=== PATIENT | female | born 1985 | race Caucasian/White ===

== ENCOUNTER → 2018-10-29 13:34 | Outpatient (CLI) | payer OTHER, SELFPAY ==
--- NOTE | 2018-10-29 13:37 | XR_ITS ---
XR AC joint BI CLINICAL INDICATION: Pain following injury, possible acromioclavicular separation ITS.REASON: RIGHT ac separation ORDERING PHYSICIAN: Aiyana Nuñez MD PATIENT AGE: 33 years Comparison: 09/14/2018 FINDINGS: Previously there was some mild prominence of the AC joint. That is less apparent on today's exam. AP views are obtained of both acromioclavicular joints without and with weights. The right AC joint is very slightly more prominent than the left AC joint however, that does not increase with weights. No fracture or dislocation is evident. IMPRESSION: Minimal prominence of the right acromioclavicular joint which does not significant change with weights and could be due to an old injury or variation of normal. Otherwise negative.
== END ==
PROVIDERS: PCP Nurse Practitioner; Visit Provider Orthopaedic Surgery
DX: S43.101A Unspecified dislocation of right acromioclavicular joint, initial encounter (principal)
CPT/HCPCS: 73050

== ENCOUNTER 2018-11-28 11:00 | Outpatient (RCR) | payer OTHER, SELFPAY ==
--- NOTE | 2018-10-02 13:24 | HMH.OTOPEV ---
OT Inpatient Evaluation Rehab OT Outpatient Eval Start: 10/02/18 13:12 Freq: Status: Active Protocol: Document 10/02/18 13:13 RMARSHALL (Rec: 10/02/18 13:24 [facility] [id number]) Electronically Signed By Anthony Garcia OT 10/02/18 13:13 Outpatient Therapy Subjective History Subjective History Pt is a 33 year old female who reports to therapy for initial evaluation to right shoulder. Pt injured her shoulder while she was in the shower on 09/14/18. Pt reports she slipped and started falling when she grabbed onto shower head and twisted her arm in the wrong direction. She immediately began having pain and numbness throughout the arm. Pt does demonstrate with decreased AROM and strength in right upper extremity. 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 Pt will continue to be seen twice a week in order to address pt's deficits. Xrays were reviewed and it appears to patient has an A/C joint separation (mild according to xray report). Chief Complaint Pain Weakness Symptom Type Ache Throb Sharp Dull Stabbing Burning Numbness Symptoms Relieved By Nothing Symptoms Aggravated By Physical Activity Lifting Prior Functional Limitations None Current Functional Limitations Reaching Lifting Housework Dressing Desk Work/Reading Sleeping Recreation Activity Symptom Description Intermittent Activity Dependent Level of pain today (0-10) 2 Pain scale - at its best (0-10) 1 Pain scale - at its worst (0-10) 8 Shoulder/Elbow Eval Shoulder Objective Measurements Shoulder ROM Right Shoulder ROM Limitations Pain Shoulder Abduction Ac
--- NOTE | 2018-10-31 15:21 | HMH.RHREAS ---
Rehab Reassessment Rehab OP Re-assessment Start: 10/31/18 14:32 Freq: Status: Active Protocol: Document 10/31/18 15:00 GABRIELA (Rec: 10/31/18 15:21 RMLAURE [id number]) Electronically Signed By Anthony Garcia OT 10/31/18 15:00 Rehab Re-assessment Subjective Subjective I went back to the doctor today. Objective Objective Notes Pt continues to be seen twice a week in order to engage in right shoulder AROM/AAROM/ Strengthening exercises due to A/C joint sprain/separation. Pt also engages in modalities such as e-stim and ionto to decrease pain/inflammation at joint. Assessment Progress Assessment Slower Than Expected Assessment Notes Pt's AROM and strength has improved since initial evaluation. However pt's pain continues to be a problem. Pt is consistent about attending therapy and is invloved in her rehab while at home. Pain at rest: 08/22 In use: 02/19 Right Shoulder Current AROM Flex: 130 degrees Abd: 150 degrees ER: 70 degrees IR: 52 degrees Right shoulder MMT Current Flex: 4+ Abd:4+ ER: 4 IR:4 Patient goals met n/a Goals Not Met Pain goal, MMT, AROM goals Revised Goals AROM Goals Flex: 160 degrees Abd: 175 degrees ER: 85 degrees IR: 80 degrees MMT Goals Flex: 5- Abd: 5- ER: 5- IR: 5- Plan Plan Continue with OT plan of care at this time. Frequency of Therapy 2 x's a week Duration of therapy 4-6 more weeks Time and Billing Re-Eval Time 15 Re-Eval Billing Units 1
== END 2018-11-28 11:05 | disposition home or self-care (01) ==
LOC: OT 11:00
PROVIDERS: Visit Provider Orthopaedic Surgery
DX: S43.101A Unspecified dislocation of right acromioclavicular joint, initial encounter (principal)
CPT/HCPCS: 97014; 97033; 97110; 97164; 97165; G0283

== ENCOUNTER → 2018-12-17 09:17 | Outpatient (CLI) | payer OTHER, SELFPAY ==
--- NOTE | 2018-12-17 09:19 | MR_ITS ---
MR shoulder RT wo con COMPARISON: 09/14/2018 HISTORY: Previous right shoulder dislocation with persistent pain and limited range of motion ORDERING PHYSICIAN: Aiyana Nuñez MD PATIENT AGE: 33 years TECHNIQUE: Routine multiplanar multiecho sequences are performed without contrast. FINDINGS: There is mild thickening of the supraspinatus tendon with slight increase in T2 signal consistent with mild tendinopathy/tendinosis with mild narrowing of the subacromial space at 5 mm. No evidence of tendon tear. The infraspinatus, subscapularis, and teres minor tendons appear intact. No evidence of labral tear. Small amount fluid is present in the subcoracoid region. The bicipital tendon is in place. No fracture. IMPRESSION: 1. Mild tendinopathy/tendinosis of the supraspinatus tendon with mild subacromial stenosis. No evidence of rotator cuff tear. 2. Small amount fluid in the subcoracoid region suggesting subcoracoid bursitis
== END ==
PROVIDERS: Visit Provider Orthopaedic Surgery
DX: S43.101A Unspecified dislocation of right acromioclavicular joint, initial encounter (principal)
CPT/HCPCS: 73221

== ENCOUNTER 2019-02-17 13:30 | Outpatient (RCR) | payer OTHER, SELFPAY ==
--- NOTE | 2019-01-27 15:38 | HMH.OTOPEV ---
OT Inpatient Evaluation Rehab OT Outpatient Eval Start: 01/27/19 15:23 Freq: Status: Active Protocol: Document 01/27/19 15:24 RMARSHALL (Rec: 01/27/19 15:[id number] Electronically Signed By Anthony Garcia OT 01/27/19 15:24 Outpatient Therapy Subjective History Subjective History Pt is a 33 year old female who reports to therapy for evaluation to right shoulder. Pt has been seen earlier in the year for right shoulder injury. Pt fell in her shower and dislocated her right shoulder in September,. Since this accident pt has had pain and decreased strength/ motion at the shoulder. Pt stopped therapy previously to have an MRI completed. MRI showed RTC tendinopathy and subacromial stenosis. Pt has had two injections at the shoulder but reports her pain continues to persist. Pt demonstrates with decreased AROM and strength upon evaluation. Pt will continue to be seen twice a week in order to address all deficits at the shoulder. Chief Complaint Pain,Weakness Symptom Type Ache,Throb,Sharp,Dull,Shooting Symptoms Relieved By Ice Symptoms Aggravated By Physical Activity,Twisting, Lifting Prior Functional Limitations None Current Functional Limitations Reaching,Lifting,Housework, Sleeping,Recreation Activity Symptom Description Intermittent,Pain at Rest Level of pain today (0-10) 3 Pain scale - at its best (0-10) 0 Pain scale - at its worst (0-10) 10 Shoulder/Elbow Eval Shoulder Objective Measurements Shoulder ROM Right Shoulder ROM Limitations Pain Shoulder Abduction Active Range of 152 degrees Motion (degrees) Shoulder Flexion Active Range of Motion 132 degrees (degrees) Query Text: Shoulder External Rotation Active Range 80 degrees of Motion (degrees) Shoulder Internal Rotation Active Range 45 degrees of Motion (degrees) pain with active ROM shoulder exam right standard pain with passive ROM shoulder exam right standard
== END 2019-02-17 17:35 | disposition home or self-care (01) ==
LOC: OT 13:30
PROVIDERS: Visit Provider Orthopaedic Surgery
DX: M75.41 Impingement syndrome of right shoulder (principal); M67.911 Unspecified disorder of synovium and tendon, right shoulder
CPT/HCPCS: 97165

== ENCOUNTER 2020-05-11 19:57 | Emergency (ER) | payer OTHER, SELFPAY ==
[2020-05-11 19:58] VITALS: BP 140/92; PULSE 87; RESP 16; TEMP 36.9; O2SAT 100; BMI 29.8
[2020-05-11 20:07] VITALS: BMI 25.0
[2020-05-11 20:12] LABS: Microscopic, Urine URINE MICROSCOPIC (MICROSCOPIC)
[2020-05-11 20:16] LABS: Appearance,Urine CLEAR (Clear); Bilirubin,Urine Negative (Negative); Blood, Urine Negative (Negative); Color,Urine YELLOW (Yellow); Glucose,Urine (UA) Negative (Negative); Ketones,Urine Negative (Negative); Leukocyte Esterase,Urine Negative (Negative); Nitrate,Urine Negative (Negative); Protein,Urine Negative (Negative); Urobilinogen,Urine 0.2 EU/dl (0.2)
[2020-05-11 20:22] LABS: Urine Pregnancy, HCG Qual. Negative (Negative)
[2020-05-11 20:31] LABS: Amorphous Sediment,Urine 1+ /lpf; Bacteria,Urine 1+ /lpf; WBC,Urine Occasional #/hpf (0-3)
[2020-05-11 20:49] VITALS: BP 140/90; PULSE 70; RESP 16; O2SAT 100
--- NOTE | 2020-05-11 21:00 | HMH.EDHA ---
ED Disposition Clinical Impression: Migraine Qualifiers: Migraine type: unspecified Status migrainosus presence: without status migrainosus Intractability: not intractable Qualified Code(s): G43.909 - Migraine, unspecified, not intractable, without status migrainosus Disposition: Home, Self-Care Condition on Discharge: Good Instructions: DI for Migraine Additional Instructions: call pcp in am Referrals: PCP,No [Primary Care Provider] - - Critical Care Critical Care Time: No Attestation: On 05/11/20, the high probability of a clinically significant, sudden or life threatening deterioration of the following system(s) required my full and direct attention, intervention and personal management. The time I documented below is in addition to time spent performing reported procedures but includes the following listed in this critical care notation. Medical Decision Making - Medical Records Medical records reviewed: Yes: I reviewed the patient's medical records. - Patrick Inquiry Pt receiving controlled substance: No Vital Signs: 05/11/20 19:58 05/11/20 20:49 Temperature 98.4 F Temperature Source Oral Pulse Rate [Right] 87 70 Respiratory Rate 16 16 Blood Pressure [Right Arm] 140/92 H 140/90 Blood Pressure Mean [Right Arm] 108 106 Blood Pressure Source [Right Arm] Automatic Cuff Automatic Cuff Blood Pressure Position [Right Arm] Sitting Sitting 02 Sat by Pulse Oximetry 100 100 Oxygen Delivery Method Room Air Room Air - Lab Data Lab Results 05/11/20 20:05: Urine Color Yellow, Urine Appearance Clear, Urine pH 8.0, Ur Specific [place] 1.020, Urine Protein Negative, Urine Glucose (UA) Negative, Urine Ketones Negative, Urine Blood Negative, Urine Nitrate Negative, Urine Bilirubin Negative, Urine Urobilinogen 0.2, Ur Leukocyte Esterase Negative, Urine WBC Occasional, Ur Squamous Epith Cells 5-10, Amorphous Sediment 1+, Urine Bacteria 1+ 05/11/20 20:05: Urine HCG, Qual Negative Orders (Tests/Meds): ED MEDICATIONS Generic Name Dose Route Start Last Admin Trade Name Freq PRN Reason Stop Dose Admin Sodium Chloride 1,000 mls @ 999 mls/hr 05/11/20 20:15 05/11/20 20:17 Sod Chlor 0.9% 1000ml Bag IV 05/11/20 21:15 999 mls/hr .Q1H1M BONNIE Administration Discontinued Medications Generic Name Dose Route Start Last Admin Trade Name Freq PRN Reason Stop Dose Admin Butorphanol Tartrate 1 mg 05/11/20 20:54 Stadol 1mg/1ml Vial IV 05/11/20 20:55 ONCE ONE Diphenhydramine HCl 50 mg 05/11/20 20:11 05/11/20 20:16 Benadryl 50mg/1ml Vial IV 05/11/20 20:12 50 mg ONCE ONE Administration Ketorolac Tromethamine 30 mg 05/11/20 20:11 05/11/20 20:16 Toradol 30mg/Ml Vial IV 05/11/20 20:12 30 mg ONCE ONE Administration Methylprednisolone Sodium Succinate 125 mg 05/11/20 20:11 05/11/20 20:16 Solu-Medrol 125mg/2ml Vial IV 05/11/20 20:12 125 mg ONCE ONE Administration Prochlorperazine Edisylate 10 mg 05/11/20 20:57 05/11/20 20:59 Compazine 10mg/2ml Vial IV 05/11/20 20:58 10 mg ONCE ONE Administration Promethazine HCl 12.5 mg 05/11/20 20:11 05/11/20 20:17 Phenergan 25mg/Ml 1ml Vial IV 05/11/20 20:12 12.5 mg ONCE ONE Administration Promethazine HCl 12.5 mg 05/11/20 20:54 05/11/20 20:58 Phenergan 25mg/Ml 1ml Vial IV 05/11/20 20:55 12.5 mg ONCE ONE Administration Sodium Chloride 25 ml 05/11/20 20:11 05/11/20 20:17 Sod Chlor 0.9% 25ml Bag IV 05/11/20 20:12 25 ml ONCE ONE Administration Sodium Chloride 25 ml 05/11/20 20:54 Sod Chlor 0.9% 25ml Bag IV 05/11/20 20:55 ONCE ONE Headache HPI - General Chief Complaint: Headache Stated Complaint: WOODS,vomiting Time Seen by Provider: 05/11/20 20:10 Mode of Arrival: Ambulatory Source of Information: Patient, Medical Record Limitations: No Limitations Description of Symptoms (Recalled from ER Triage Doc. by RN): PT c/o migraine advises it started around 3pm today. She has a h
[2020-05-11 21:27] VITALS: BP 120/80; PULSE 77; RESP 16; TEMP 36.6; O2SAT 98
== END 2020-05-11 21:27 | disposition home or self-care (01) ==
PROVIDERS: Emergency Provider Emergency Medicine
DX: G43.909 Migraine, unspecified, not intractable, without status migrainosus (principal)
CPT/HCPCS: 81001; 81025; 96365; 96375; 96376; 99283

== ENCOUNTER 2020-12-16 15:12 | Emergency (ER) | payer OTHER, SELFPAY ==
--- NOTE | 2020-12-16 15:08 | ECG_ITS ---
APPROVED REPORT Exam: Resting ECG HR:76 bpm ECG Measurements Heart Rate 76 AXES LA 134 P 39 QRSd 78 QRS 82 QT 382 T 39 QTc 429 Conclusion Normal sinus rhythm Normal ECG Electronically signed by : Isra Smith, 12/17/2020 14:59:43
[2020-12-16 15:12] VITALS: BP 130/83; PULSE 76; RESP 20; TEMP 36.8; O2SAT 97; BMI 32.3
--- NOTE | 2020-12-16 15:15 | XR_ITS ---
PROCEDURE: XR CHEST 2V CLINICAL HISTORY: CP Chest pain COMPARISON: No exams were available for comparison FINDINGS: The cardiomediastinal silhouette and pulmonary vascularity are within normal limits. The lungs are clear without infiltrates, suspicious nodules, or pleural effusions. No acute bony abnormalities. IMPRESSION: No acute findings. Dictated by: Earl Meyer MD 12/16/2020 16:26 Earl Meyer MD in [place] 12/16/2020 16:26
[2020-12-16 15:29] LABS: Basophils % 0.6 % (0.1-2.0); Eosinophils # 0.1 K/mm3 (0.0-0.4); Eosinophils % 1.6 % (0.1-12.0); Hematocrit 44.3 % (37.0-47.0); Hemoglobin 14.9 g/dL (12.2-16.2); Lymphocytes # 1.5 K/mm3 (0.7-4.5); Lymphocytes % 28.2 % (10-50); Mean Corpuscular HGB Conc 33.7 g/dL (31.8-35.4); Mean Corpuscular Hemoglobin 30.8 pg (27.0-31.2); Mean Corpuscular Volume 91.4 fl (81-99); Mean Platelet Volume 7.4 fl (7.4-10.4); Monocytes # 0.3 K/mm3 (0.1-1.0); Monocytes % 4.9 % (1.7-9.3); Neutrophils # 3.4 K/mm3 (1.8-7.8); Neutrophils % 64.7 % (37.0-80.0); Platelet Count 210 K/mm3 (142-424); Red Blood Count 4.85 M/mm3 (4.20-5.40); Red Cell Distribution Width 12.6 % (11.5-17.5); White Blood Count 5.2 K/mm3 (4.8-10.8)
[2020-12-16 15:31] VITALS: BP 133/85; PULSE 83; RESP 20; O2SAT 98
[2020-12-16 15:34] LABS: Chloride 102 mmol/L (98-107)
[2020-12-16 15:35] LABS: Potassium 3.9 mmoL/L (3.5-5.1); Sodium 136 mmol/L (136-145)
[2020-12-16 15:37] LABS: Blood Urea Nitrogen 14 mg/dl (7-17); Creatinine Clearance Estimated 126 mL/min (50-200); Estimated Glomerular Filt Rate 72 ml/min (>60); GFR (African American) 87 ML/MIN (>60)
[2020-12-16 15:38] LABS: Anion Gap 11.9 mEq/L (5-15); Calcium 9.6 mg/dl (8.4-10.2); Carbon Dioxide 26 mmol/L (22.0-30.0); Glucose 97 mg/dl (74-100)
[2020-12-16 15:43] LABS: D-Dimer 0.65 ug/mL (0.0-0.5)
--- NOTE | 2020-12-16 15:48 | HMH.EDCP ---
ED Disposition Clinical Impression: Pleuritic chest pain Disposition: Home, Self-Care Condition on Discharge: Good Additional Instructions: Return the emergency room for worsening chest pain vomiting fever or any other concerns within the next 8 hours otherwise follow-up with your primary care physician within the next few days Prescriptions: Naproxen Sodium [Naproxen 220mg Tab] 220 mg PO TID 10 Days #20 tab Transmission Status: Pending to [facility] #[id number] Referrals: Provider,Referral, [Referring] - - Critical Care Critical Care Time: No Attestation: On 12/16/20, the high probability of a clinically significant, sudden or life threatening deterioration of the following system(s) required my full and direct attention, intervention and personal management. The time I documented below is in addition to time spent performing reported procedures but includes the following listed in this critical care notation. Medical Decision Making - Medical Records Medical records reviewed: Yes: I reviewed the patient's medical records. - Patrick Inquiry Pt receiving controlled substance: No Vital Signs: 12/16/20 15:12 12/16/20 15:31 12/16/20 16:01 Temperature 98.3 F Temperature Source Oral Pulse Rate 83 75 Pulse Rate [Left Radial] 76 Respiratory Rate 20 20 15 Blood Pressure 133/85 104/77 L Blood Pressure [Right Arm] 130/83 Blood Pressure Mean 98 86 Blood Pressure Mean [Right Arm] 98 Blood Pressure Source [Right Arm] Automatic Cuff Blood Pressure Position [Right Arm] Sitting 02 Sat by Pulse Oximetry 97 98 97 Oxygen Delivery Method Room Air 12/16/20 16:30 Temperature Temperature Source Pulse Rate 67 Pulse Rate [Left Radial] Respiratory Rate 16 Blood Pressure 123/85 Blood Pressure [Right Arm] Blood Pressure Mean Blood Pressure Mean [Right Arm] Blood Pressure Source [Right Arm] Blood Pressure Position [Right Arm] 02 Sat by Pulse Oximetry 95 Oxygen Delivery Method - Lab Data Lab Results 12/16/20 15:17: WBC 5.2, RBC 4.85, Hgb 14.9, Hct 44.3, MCV 91.4, MCH 30.8, MCHC 33.7, RDW 12.6, Plt Count 210, MPV 7.4, Neut % (Auto) 64.7, Lymph % (Auto) 28.2, [place] % (Auto) 4.9, Eos % (Auto) 1.6, Baso % (Auto) 0.6, Neut # (Auto) 3.4, Lymph # (Auto) 1.5, [place] # (Auto) 0.3, Eos # (Auto) 0.1, Baso # (Auto) 0.0 12/16/20 15:17: Sodium 136, Potassium 3.9, Chloride 102, Carbon Dioxide 26, Anion Gap 11.9, BUN 14, Creatinine 0.90, Estimated Creat Clear 126, Estimated GFR 72, Est GFR ( Amer) 87, Glucose 97, Calcium 9.6, Troponin I < 0.01 12/16/20 15:17: D-Dimer 0.65 H 12/16/20 15:17: Serum HCG, Qual Negative 12/16/20 18:38: Troponin I < 0.01 Result diagrams: 12/16/20 15:17 12/16/20 15:17 Orders (Tests/Meds): ED MEDICATIONS Discontinued Medications Generic Name Dose Route Start Last Admin Trade Name Freq PRN Reason Stop Dose Admin Ketorolac Tromethamine 30 mg 12/16/20 17:19 12/16/20 17:42 Ketorolac 30mg/Ml Vial IV 12/16/20 17:20 30 mg ONCE ONE Administration ORDERS Category Date Time Status Troponin I Q3H Lab 12/16/20 21:30 Ordered Medical Decision Narrative: 35-year-old female presents with chest pain as above. She is in no acute distress nontoxic-appearing comfortable in the bed. Vital signs are normal she is not hypoxic or tachycardic. Low gestalt for pulmonary embolism, D-dimer was obtained. Atypical presentation for myocardial infarction heart score is low risk. Atypical presentation for aortic dissection or pneumothorax or any other concerns. Dimer was negative per years criteria. Troponin and EKG were negative as well on multiple reassessments her pain was improving. Plan to discharge with symptomatic relief for anti-inflammatories and return precautions Chest Pain HPI - General Chief Complaint: Chest Pain Stated Complaint: CP Time Seen by Provider: 12/16/20 15:15 Mode of Arrival: Ambulatory Limitations: No Limitations Description
[2020-12-16 15:52] LABS: Troponin I < 0.01 ng/ml (0.00-0.034)
[2020-12-16 16:01] VITALS: BP 104/77; PULSE 75; RESP 15; O2SAT 97
[2020-12-16 16:02] LABS: HCG Qualitative, Serum Negative (Negative)
[2020-12-16 16:30] VITALS: BP 123/85; PULSE 67; RESP 16; O2SAT 95
[2020-12-16 19:09] LABS: Troponin I < 0.01 ng/ml (0.00-0.034)
[2020-12-16 20:08] VITALS: BP 108/85; PULSE 67; RESP 16; TEMP 36.8; O2SAT 97
== END 2020-12-16 20:08 | disposition home or self-care (01) ==
PROVIDERS: Emergency Provider Emergency Medicine; PCP Nurse Practitioner
DX: R07.81 Pleurodynia (principal)
CPT/HCPCS: 71046; 80048; 84484; 84703; 85025; 85378; 93005; 96374; 99282

== ENCOUNTER 2021-03-12 12:17 | Emergency (ER) | payer OTHER, SELFPAY ==
[2021-03-12 12:31] VITALS: BP 123/79; PULSE 86; RESP 18; TEMP 37; O2SAT 97; BMI 33.0
--- NOTE | 2021-03-12 12:54 | HMH.EDUTC ---
[facility] [place] Disposition Clinical Impression: UTI (urinary tract infection) Qualifiers: Urinary tract infection type: site unspecified Hematuria presence: with hematuria Qualified Code(s): N39.0 - Urinary tract infection, site not specified; R31.9 - Hematuria, unspecified Disposition: Home, Self-Care Condition on Discharge: Good Instructions: Urinary Tract Infection, DI for Urinary Tract Infection (UTI) Additional Instructions: Drink plenty of fluids. Take tylenol or ibuprofen for pain or fever. Take the medications as directed. Follow up with your regular doctor. GO TO THE ER FOR ANY WORSENING SYMPTOMS he pyridium will make your urine turn orange, this is an expected side effect. It will stain your clothes if it comes into contact with them. Prescriptions: Ciprofloxacin HCl 500 mg PO BID 7 Days #14 tab Transmission Status: Received by [facility] #[id number] Phenazopyridine HCl [Pyridium 200mg Tablet] 200 pow PO TID #6 tab Transmission Status: Received by [facility] #[id number] Referrals: Washington Seth [Primary Care Provider] - Time of Disposition: 13:17 Medical Decision Making - Medical Records Medical records reviewed: No: I reviewed the patient's medical records. - Patrick Inquiry Pt receiving controlled substance: No Vital Signs: 03/12/21 12:31 03/12/21 13:33 Temperature 98.6 F 98.5 F Temperature Source Oral Pulse Rate 84 Pulse Rate [Left] 86 Respiratory Rate 18 16 Blood Pressure 122/74 Blood Pressure [Right Arm] 123/79 Blood Pressure Mean [Right Arm] 93 02 Sat by Pulse Oximetry 97 - Lab Data Lab results reviewed: Yes: I reviewed the patient's lab results. Lab Results 03/12/21 12:39: Urine Color Yellow, Urine Appearance Cloudy, Urine pH 6.5, Ur Specific [place] > 1.030 H, Urine Protein 2+, Urine Glucose (UA) Negative, Urine Ketones Trace, Urine Blood 4+, Urine Nitrate Positive A, Urine Bilirubin Negative, Urine Urobilinogen 1, Ur Leukocyte Esterase 3+ A Orders (Tests/Meds): ORDERS Category Date Time Status Urine Culture Stat Micro 03/12/21 13:00 Results [facility] [place] HPI - General Stated complaint: possible uti Time Seen by Provider: 03/12/21 12:54 Mode of Arrival: Ambulatory Source of Information: Patient Limitations: No Limitations Description of Symptoms (Recalled from Triage Doc. by RN): pt c/o burning and frequency with urination. pt finished a round of antibiotics for a uti 02/27, she was seen at the [facility]. HEENT Symptoms (Recalled from RN notes): No Resp Symptoms (Recalled from RN notes): No Skin Symptoms (Recalled from RN notes): No MS Symptoms (Recalled from RN notes): No Functional Status (Recalled from RN notes): na - History of Present Illness Provider Complaint: She c/o dysuria and low back pain since yesterday. She states that she has a history of getting UTI's kind of frequently. - Related Data Previous Rx's Medication Instructions Recorded Naproxen Sodium [Naproxen 220mg 220 mg PO TID 10 Days #20 tab 12/16/20 Tab] sulfamethoxazole 800 1 tab PO Q12H 10 Days #20 tab 01/18/21 mg-trimethoprim 160 mg tablet Ciprofloxacin HCl 500 mg PO BID 7 Days #14 tab 03/12/21 Phenazopyridine HCl [Pyridium 200 pow PO TID #6 tab 03/12/21 200mg Tablet] Allergies Allergy/AdvReac Type Severity Reaction Status Date / Time No Known Allergies Allergy Verified 03/12/21 12:31 - Worker's Comp Is this a Worker's Comp case?: No Is this an H Worker's Comp?: No [facility] History - Hepatitis A Screen Drug use history?: No High risk sexual behaviors?: No History of sexually transmitted infection?: No Currently employed?: No Childcare worker?: No Do you have indoor plumbing?: Yes Do you have electricity?: Yes Attestation statement:: This patient has been screened for Hepatitis A risk factors. I have reviewed the patient's past medical history: Yes Medical History: Reports:: Migraine Denies:: Cancer, Diabetes Kayla
[2021-03-12 13:04] LABS: Apearance,Urine Cloudy (Clear); Color,Urine Yellow (Yellow); PH,Urine 6.5 (5.0-8.5); Specific Gravity, Urine > 1.030 (1.005-1.030)
[2021-03-12 13:05] LABS: Bilirubin,Urine Negative (Negative); Blood, Urine 4+ (Negative); Glucose,Urine (UA) Negative (Negative); Ketones,Urine TRACE (Negative); Protein,Urine 2+ (Negative); UTC Leukocyte Esterase,Urine 3+ (Negative); UTC Nitrate,Urine Positive (Negative); Urobilinogen,Urine 1 EU/dl (0.2)
[2021-03-12 13:33] VITALS: BP 122/74; PULSE 84; RESP 16; TEMP 36.9
== END 2021-03-12 13:36 | disposition home or self-care (01) ==
PROVIDERS: Emergency Provider Nurse Practitioner Family; PCP Nurse Practitioner
DX: N30.00 Acute cystitis without hematuria (principal)
CPT/HCPCS: 81003; 87086; 87088; 87186; 99202; G0463

== ENCOUNTER → 2021-03-22 19:11 | Outpatient (CLI) | payer OTHER, SELFPAY | PROVIDERS: Visit Provider Nurse Practitioner Family | DX: Z20.822 Contact with and (suspected) exposure to COVID-19 (principal); J02.9 Acute pharyngitis, unspecified | CPT/HCPCS: U0003 ==

== ENCOUNTER 2021-06-06 15:43 | Emergency (ER) | payer OTHER, SELFPAY ==
[2021-06-06 16:35] VITALS: BP 114/69; PULSE 76; RESP 20; TEMP 36.3; O2SAT 98; BMI 32.3
[2021-06-06 17:00] LABS: Color,Urine Dark Yellow (Yellow)
[2021-06-06 17:01] LABS: Apearance,Urine Clear (Clear); Glucose,Urine (UA) Negative (Negative); Ketones,Urine Negative (Negative); PH,Urine 6.5 (5.0-8.5); Protein,Urine Negative (Negative)
[2021-06-06 17:02] LABS: Bilirubin,Urine Negative (Negative); Blood, Urine 1+ (Negative)
[2021-06-06 17:03] LABS: UTC Leukocyte Esterase,Urine 1+ (Negative); UTC Nitrate,Urine Positive (Negative); Urobilinogen,Urine 0.2 EU/dl (0.2)
--- NOTE | 2021-06-06 17:21 | HMH.EDUTC ---
[facility] [place] Clinical Impression: UTI (urinary tract infection) Qualifiers: Urinary tract infection type: site unspecified Hematuria presence: with hematuria Qualified Code(s): N39.0 - Urinary tract infection, site not specified Disposition: Home, Self-Care Condition on Discharge: Good Instructions: Urinary Tract Infection, DI for Urinary Tract Infection (UTI) Additional Instructions: Drink plenty of fluids. Take tylenol or ibuprofen for pain or fever. Take the medications as directed. Follow up with your regular doctor. GO TO THE ER FOR ANY WORSENING SYMPTOMS The pyridium will make your urine turn orange, this is an expected side effect. It will stain your clothes if it comes into contact with them. Prescriptions: Ondansetron [Zofran 4mg ODT] 4 mg PO Q8HP PRN #12 tab PRN Reason: Nausea Transmission Status: Pending to [facility] # Sulfamethoxazole/Trimethoprim [Bactrim DS tablet] 1 each PO BID 7 Days #14 tab Transmission Status: Pending to [facility] # Phenazopyridine HCl [Pyridium 200mg Tablet] 200 pow PO TID #6 tab Transmission Status: Pending to [facility] # Referrals: Washington Seth [Primary Care Provider] - Time of Disposition: 17:35 Medical Decision Making - Medical Records Medical records reviewed: No: I reviewed the patient's medical records. - Patrick Inquiry Pt receiving controlled substance: No Vital Signs: 06/06/21 16:35 Temperature 97.4 F L Temperature Source Temporal Artery Scan Pulse Rate [Left Brachial] 76 Respiratory Rate 20 Blood Pressure [Left Arm] 114/69 Blood Pressure Mean [Left Arm] 84 Blood Pressure Source [Left Arm] Automatic Cuff Blood Pressure Position [Left Arm] Sitting 02 Sat by Pulse Oximetry 98 Oxygen Delivery Method Room Air - Lab Data Lab results reviewed: Yes: I reviewed the patient's lab results. Lab Results 06/06/21 16:52: Urine Color Dark yellow, Urine Appearance Clear, Urine pH 6.5, Ur Specific [place] 1.020, Urine Protein Negative, Urine Glucose (UA) Negative, Urine Ketones Negative, Urine Blood 1+, Urine Nitrate Positive A, Urine Bilirubin Negative, Urine Urobilinogen 0.2, Ur Leukocyte Esterase 1+ A Orders (Tests/Meds): ORDERS Category Date Time Status Urine Culture Stat Micro 06/06/21 16:40 Received [facility] [place] HPI - General Stated complaint: Possible UTI Time Seen by Provider: 06/06/21 17:22 Mode of Arrival: Ambulatory Source of Information: Patient Limitations: No Limitations Description of Symptoms (Recalled from Triage Doc. by RN): PATIENT C/O PAIN AND BURNING WITH URINATION AND FATIGUE X 4 DAYS HEENT Symptoms (Recalled from RN notes): No Resp Symptoms (Recalled from RN notes): No Skin Symptoms (Recalled from RN notes): No MS Symptoms (Recalled from RN notes): No Functional Status (Recalled from RN notes): WNL - History of Present Illness Provider Complaint: She states that for the past 1 day she has had dysuria and low back pain. She has had several uti's recently and she feels like she has another one. - Related Data Previous Rx's Medication Instructions Recorded Ondansetron [Zofran 4mg ODT] 4 mg PO Q8HP PRN #12 tab 06/06/21 Phenazopyridine HCl [Pyridium 200 pow PO TID #6 tab 06/06/21 200mg Tablet] Sulfamethoxazole/Trimethoprim 1 each PO BID 7 Days #14 tab 06/06/21 [Bactrim DS tablet] Allergies Allergy/AdvReac Type Severity Reaction Status Date / Time No Known Allergies Allergy Verified 03/22/21 15:05 - Worker's Comp Is this a Worker's Comp case?: No [facility] History - Hepatitis A Screen Drug use history?: No High risk sexual behaviors?: No History of sexually transmitted infection?: No Currently employed?: No Childcare worker?: No Do you have indoor plumbing?: Yes Do you have electricity?: Yes Attestation statement:: This patient has been screened for Hepatitis A risk factors. I have reviewed the patient's past m
[2021-06-06 17:48] VITALS: BP 114/69; PULSE 76; RESP 20; TEMP 36.3; O2SAT 98
== END 2021-06-06 18:02 | disposition home or self-care (01) ==
PROVIDERS: Emergency Provider Nurse Practitioner Family; PCP Nurse Practitioner
DX: N30.00 Acute cystitis without hematuria (principal); G43.709 Chronic migraine without aura, not intractable, without status migrainosus
CPT/HCPCS: 81003; 87086; 87088; 87186; 99202; G0463

== ENCOUNTER 2021-10-10 11:01 | Emergency (ER) | payer OTHER, SELFPAY ==
[2021-10-10 11:34] VITALS: BP 131/84; PULSE 86; RESP 18; TEMP 36.8; O2SAT 96; BMI 35.3
[2021-10-10 11:45] LABS: Apearance,Urine Cloudy (Clear); Color,Urine Yellow (Yellow)
[2021-10-10 11:46] LABS: Bilirubin,Urine Negative (Negative); Blood, Urine 2+ (Negative); Glucose,Urine (UA) Negative (Negative); Ketones,Urine Negative (Negative); Protein,Urine 1+ (Negative); Specific Gravity, Urine 1.025 (1.005-1.030); UTC Leukocyte Esterase,Urine 2+ (Negative); UTC Nitrate,Urine Negative (Negative); Urobilinogen,Urine 0.2 EU/dl (0.2)
--- NOTE | 2021-10-10 11:57 | HMH.EDUTC ---
[facility] [place] Disposition Clinical Impression: UTI (urinary tract infection) Qualifiers: Urinary tract infection type: site unspecified Hematuria presence: with hematuria Qualified Code(s): N39.0 - Urinary tract infection, site not specified Disposition: Home, Self-Care Condition on Discharge: Good Instructions: DI for Urinary Tract Infection (UTI), Nitrofurantoin Additional Instructions: *Increase fluids. Water not Soda or Tea *Start antibiotic immediately and be sure to take as ordered for the FULL length of time although you should start to see improvement over the next 48 hours *Pyridium as needed Remember this medication will turn your urine Ogilvie. This is normal but it will stain what ever it gets on *You should not use Pyridium for more than 48 hours. If so , follow up with your primary physician to review urine culture and ensure that antibiotic is adequate for infection *Be SURE to follow up anytime for new or worsening symptoms with your family doctor. AND in 48 hours for urine culture results with your family doctor, if you do not have a doctor then you may call back to the [facility] for urine culture results and further treatment. We do recommend that you choose and establish care with a Primary Care Physician. AND follow up with them in 10-14 days to repeat UA to ensure infection is resolved and blood no longer present *Be sure to let your PCP know that we sent urine cultures from the [facility] so they can follow up to ensure that you area the on the correct antibiotic Call your doctor office and make appointment for 48 hours (2 days from today) to follow up and get the results of your urine culture and further treatment Prescriptions: Nitrofurantoin Monohyd/M-Cryst [Macrobid 100 mg Capsule] 100 mg PO BID 10 Days #20 cap Transmission Status: Received by [employer] #[id number] Phenazopyridine HCl [Pyridium 200mg Tablet] 200 pow PO TID #6 tab Transmission Status: Received by [employer] #[id number] Referrals: Washington Seth [Primary Care Provider] - As needed Time of Disposition: 12:09 Medical Decision Making - Patrick Inquiry Pt receiving controlled substance: No Patrick was queried for this patient: No Vital Signs: 10/10/21 11:34 Temperature 98.2 F Temperature Source Oral Pulse Rate [Right Radial] 86 Respiratory Rate 18 Blood Pressure [Right Arm] 131/84 Blood Pressure Mean [Right Arm] 99 Blood Pressure Source [Right Arm] Automatic Cuff Blood Pressure Position [Right Arm] Sitting 02 Sat by Pulse Oximetry 96 Oxygen Delivery Method Room Air - Lab Data Lab results reviewed: Yes: I reviewed the patient's lab results. Lab Results 10/10/21 11:14: Urine Color Yellow, Urine Appearance Cloudy, Urine pH 8.0, Ur Specific Power 1.025, Urine Protein 1+, Urine Glucose (UA) Negative, Urine Ketones Negative, Urine Blood 2+, Urine Nitrate Negative, Urine Bilirubin Negative, Urine Urobilinogen 0.2, Ur Leukocyte Esterase 2+ A Orders (Tests/Meds): ED MEDICATIONS Discontinued Medications Generic Name Dose Route Start Last Admin Trade Name Freq PRN Reason Stop Dose Admin Ceftriaxone Sodium 1 gm 10/10/21 12:07 10/10/21 12:28 Ceftriaxone 1gm Vial IM 10/10/21 12:08 1 gm ONCE ONE Administration Lidocaine HCl 0 ml 10/10/21 12:07 10/10/21 12:28 Lidocaine 1% 5ml Pf Vial IM 10/10/21 12:08 1.5 ml ONCE ONE Administration ORDERS Category Date Time Status Urine Culture Stat Micro 10/10/21 11:10 Received [facility] [place] HPI - General Stated complaint: possible uti Time Seen by Provider: 10/10/21 11:57 Mode of Arrival: Ambulatory Source of Information: Patient Limitations: No Limitations Description of Symptoms (Recalled from Triage Doc. by RN): Pt stated that since sunday she has burning during urination, frequent urinations, and lower abdominal pain. HEENT Symptoms (Recalled from RN notes): No Resp Symptoms (Recalled from RN notes): No Skin Symptoms (Recalled from RN notes): No MS Sym
[2021-10-10 13:07] VITALS: BP 131/84; PULSE 86; RESP 18; TEMP 36.8; O2SAT 96
== END 2021-10-10 13:07 | disposition home or self-care (01) ==
PROVIDERS: Nurse Practitioner; Emergency Provider Physician Assistant; PCP Nurse Practitioner
DX: N30.00 Acute cystitis without hematuria (principal)
CPT/HCPCS: 81003; 87086; 87088; 87186; 96372; 99212; G0463; J0696

== ENCOUNTER 2022-01-23 19:00 | Emergency (ER) | payer OTHER, SELFPAY ==
--- NOTE | 2022-01-23 19:21 | HMH.EDUTC ---
[facility] [place] Disposition Clinical Impression: Viral syndrome, Gastroenteritis Disposition: Home, Self-Care Condition on Discharge: Good Instructions: DI for Viral Gastroenteritis -- Adult, Promethazine Additional Instructions: Drink plenty of fluids. Take tylenol or ibuprofen for pain or fever. Take the medications as directed. Follow up with your regular doctor. GO TO THE ER FOR ANY WORSENING SYMPTOMS Quarantine until you know the results of your covid-19 test. Notify your school or workplace of your results and follow their instructions regarding return to work/school. The promethazine will make you drowsy, so don't drive or operate heavy machinery after taking it. Prescriptions: Promethazine HCl [Phenergan 25mg tab] 25 mg PO Q6H PRN #15 tab PRN Reason: Nausea And Vomiting Transmission Status: Received by [employer] #[id number] Referrals: Washington Seth [Primary Care Provider] - Forms: Work/School Release Time of Disposition: 19:59 Medical Decision Making - Medical Records Medical records reviewed: No: I reviewed the patient's medical records. - Patrick Inquiry Pt receiving controlled substance: No Vital Signs: 01/23/22 19:29 01/23/22 20:00 Temperature 97.6 F 97.6 F Temperature Source Oral Pulse Rate 89 Pulse Rate [Left Radial] 89 Respiratory Rate 18 17 Blood Pressure 107/74 L Blood Pressure [Right Arm] 107/74 L Blood Pressure Mean [Right Arm] 85 02 Sat by Pulse Oximetry 100 - Lab Data Lab results reviewed: Yes: I reviewed the patient's lab results. Orders (Tests/Meds): ED MEDICATIONS Discontinued Medications Generic Name Dose Route Start Last Admin Trade Name Freq PRN Reason Stop Dose Admin Promethazine HCl 25 mg 01/23/22 19:45 01/23/22 19:56 Promethazine Hcl 25mg/Ml 1ml Vial IM 01/23/22 19:46 25 mg ONCE ONE Administration [facility] [place] HPI - General Stated complaint: vomiting, weak, body aches Time Seen by Provider: 01/23/22 19:21 - History of Present Illness Provider Complaint: He states that she has had body aches, chills, low grade fever and n/v since 1500 today. - Related Data Previous Rx's Medication Instructions Recorded Nitrofurantoin Monohyd/M-Cryst 100 mg PO BID 10 Days #20 cap 10/10/21 [Macrobid 100 mg Capsule] Phenazopyridine HCl [Pyridium 200 pow PO TID #6 tab 10/10/21 200mg Tablet] Promethazine HCl [Phenergan 25mg 25 mg PO Q6H PRN #15 tab 01/23/22 tab] Allergies Allergy/AdvReac Type Severity Reaction Status Date / Time No Known Allergies Allergy Verified 10/10/21 11:38 [facility] History - Hepatitis A Screen Attestation statement:: This patient has been screened for Hepatitis A risk factors. I have reviewed the patient's past medical history: Yes Medical History: Reports:: Migraine Denies:: Cancer, Diabetes Mellitus Type 1, Diabetes Mellitus Type 2, MRSA Other Medical History: Reports: Other Other Surgeries: Yes: No Previous Surgery Amputation: No Fractures: No - Social History Smoking Status: Never smoker Alcohol Intake: never Occupational Status: employed Housing: house Household Members: family Family Hx:: Thyroid Disorder, Hypertension, Diabetes ROS Obtained: Yes All systems reviewed & no additional complaints - Constitutional Constitutional: Reports body ache, Reports chills, Reports fever(s), Reports poor appetite, Reports malaise - Eyes Eyes: Denies eye discharge - ENT Ears, Nose, Mouth, and Throat: Denies dizziness, Denies otalgia, Denies sore throat - Cardiovascular Cardiovascular: Denies chest pain - Respiratory Respiratory: Reports chest congestion, Reports cough, Denies dyspnea, Denies stridor, Denies wheezing Physical Exam - General General appearance: alert, in no apparent distress - Head Head exam: atraumatic, normocephalic, normal inspection - Eye Eye exam: Present: normal appearance, PERRL, EOMI - ENT ENT exam: Present: kevan
[2022-01-23 19:29] VITALS: BP 107/74; PULSE 89; RESP 18; TEMP 36.4; O2SAT 100; BMI 30.7
[2022-01-23 20:00] VITALS: BP 107/74; PULSE 89; RESP 17; TEMP 36.4
== END 2022-01-23 20:10 | disposition home or self-care (01) ==
PROVIDERS: Emergency Provider Nurse Practitioner Family; PCP Nurse Practitioner
DX: K52.9 Noninfective gastroenteritis and colitis, unspecified (principal); B34.9 Viral infection, unspecified
CPT/HCPCS: 96372; 99212; G0463